=== PATIENT | male | born 1950 | race Caucasian/White ===

== ENCOUNTER 2020-04-25 00:37 | Inpatient (IN) | payer BC, MEDICARE ==
[2020-04-25] VITALS (15 sets, daily range): BP systolic 105–122; BP diastolic 64–108
[~2020-04-25] VITALS: Ht 182.9 cm; Wt 87.1 kg
[2020-04-25] MEDS ORDERED: DILTIAZEM HCL 5 MG/ML 5 ML VIAL IV STA ×2 (01:12→04:43)
[2020-04-25] MEDS ORDERED: DILTIAZEM HCL VIAL 5 ML ONE (01:16)
--- NOTE | 2020-04-25 02:16 | Diagnostic Imaging Report ---
EXAMINATION: CHEST SINGLE (PORTABLE) INDICATION: Short of breath COMPARISON: None FINDINGS: TUBES and LINES: None. LUNGS: Normal lung volumes. Mild prominence of interstitial lung markings. No consolidations. Prominent pulmonary vasculature. PLEURA: No pleural effusion or pneumothorax. HEART AND MEDIASTINUM: Cardiac size is mildly enlarged. BONES AND SOFT TISSUES: No acute osseous lesion. Soft tissues are unremarkable. UPPER ABDOMEN: No free air under the diaphragm. IMPRESSION: Mild cardiomegaly and pulmonary vascular congestion. Mild prominence of interstitial lung markings, can be due to interstitial edema or chronic lung disease. Signed by: Otto Rodriguez DO on 04/25/2020 2:13 AM
[2020-04-25 02:23] LABS: BASOPHILS % 0.3 % (0.0-1.0); EOSINOPHILS # (AUTO) 0.1 (0.0-0.4); EOSINOPHILS % 0.3 % (0.0-6.0); HEMATOCRIT 45.5 % (38.2-49.6); LYMPHOCYTES # (AUTO) 2.8 (1.0-3.2); LYMPHOCYTES % 19.5 % (18.0-39.1); MEAN CORPUSCULAR HEMOGLOBIN 32.3 pg (28-32); MEAN CORPUSCULAR VOLUME 97.8 fL (81-99); MONOCYTES # (AUTO) 0.8 (0.2-0.8); MONOCYTES % 5.4 % (4.4-11.3); NEUTROPHILS # (AUTO) 10.6 (2.1-6.9); NEUTROPHILS % 72.8 % (38.7-80.0); PLATELET COUNT 166 x10e3/uL (140-360); RED BLOOD COUNT 4.65 x10e6/uL (4.3-5.7); RED CELL DISTRIBUTION WIDTH 12.6 % (11.7-14.4)
[2020-04-25 02:29] LABS: ALBUMIN 3.6 g/dL (3.5-5.0); ALBUMIN/GLOBULIN RATIO 1.1 (0.8-2.0); ANION GAP 20.5 mmol/L (8-16); CREATININE, SERUM 1.24 mg/dL (0.72-1.25); POTASSIUM 4.5 mmol/L (3.5-5.1)
[2020-04-25 02:37] LABS: CREATINE KINASE MB 2.9 ng/mL (0-5.0)
[2020-04-25] MEDS ORDERED: DILTIAZEM HCL 5 MG/ML 5 ML VIAL IV PRN (03:00)
--- NOTE | 2020-04-25 03:11 | Emergency Department Note ---
History of Present Illnes History of Present Illness Chief Complaint: Respiratory History of Present Illness This is a 69 year old male arrives to the ED with complaints of palpi tations shortness of breath . Historian: Patient Arrival Mode: Car Severity: mild Onset quality: gradual Timing of current episode: constant Progression: unchanged Chronicity: new Past Medical/Family History Physician Review I have reviewed the patient's past medical and family history. Any updates have been documented here. Past Medical History Recent Fever: No Clinical Suspicion of Infectio: No New/Unexplained Change in Ment: No Past Medical History: Hypertension, A-Fib, Kidney Stones, Chronic Back Pain Other Medical History: PRE DIABETIC Past Surgical History: Cataract Removal Other Surgery: MASS REMOVE FROM BILATERAL CHEST Social History Smoking Cessation: Never Smoker Counseling Performed: No Alcohol Use: None Any Illegal Drug Use: No Physically hurt or threatened: No Other Any Pre-Existing Lines (PICC,: No Review of Systems Review of Systems Constitutional: Reports no symptoms EENTM: Reports no symptoms Cardiovascular: Reports as per HPI, Reports chest pain, Reports palpitations Respiratory: Reports as per HPI, Reports dyspnea Gastrointestinal: Reports no symptoms Genitourinary: Reports no symptoms Musculoskeletal: Reports no symptoms Integumentary: Reports no symptoms Neurological: Reports no symptoms Psychological: Reports no symptoms Endocrine: Reports no symptoms Hematological/Lymphatic: Reports no symptoms Physical Exam Related Data Allergies: Coded Allergies: Clarithromycin (Verified Allergy, Mild, GI UPSET, 11/06/09) Uncoded Allergies: WHEAT (Allergy, Severe, 09/13/10) Triage Vital Signs Vital Signs Date Time Temp Pulse Resp B/P (MAP) Pulse Ox O2 Delivery O2 Flow Rate FiO2 04/25/20 00:53 97.9 170 17 124/89 99 Room Air Vital signs reviewed: Yes Physical Exam CONSTITUTIONAL Constitutional: Present well-developed, Present well-nourished HENT HENT: Present normocephalic, Present atraumatic, Present oropharynx clear/moist, Present nose normal HENT L/R: Present left ext ear normal, Present right ext ear normal EYES Eyes: Reports PERRL, Reports conjunctivae normal NECK Neck: Present ROM normal PULMONARY Pulmonary: Present effort normal, Present breath sounds normal CARDIOVASCULAR Cardiovascular: Present regular rhythm, Present irregular rhythm, Present heart sounds normal, Present capillary refill normal, Present normal rate, Present tachycardia GASTROINTESTINAL Abdominal: Present soft, Present nontender, Present bowel sounds normal GENITOURINARY Genitourinary: Present exam deferred SKIN Skin: Present warm, Present dry MUSCULOSKELETAL Musculoskeletal: Present ROM normal NEUROLOGICAL Neurological: Present alert, Present oriented x 3, Present no gross motor or sensory deficits PSYCHOLOGICAL Psychological: Present mood/affect normal, Present judgement normal Results Laboratory Lab results reviewed: Yes Laboratory comments 69 M arrived to the ED after complaints of SOB, noted to be in A fib with RVR given cardizem with improvement in heart rate. Pt admitted for observation for serial troponin and cardiac monitoring. Imaging Imaging results reviewed: Yes Procedures 12 Lead ECG Interpretation ECG Interpretation : ECG: ECG 1 Rhythm: atrial fibrillation Rate: tachycardia QRS axis: left Clinical Impression: abnormal ECG Assessment & Plan Medical Decision Making MDM 69-year-old male arrives the ED with complaints of palpitations and shortness of breath. Patient found to be nature fibrillation with rapid ventricular response. Patient given Cardizem the ED with improvement noted. Pt admitted for monitoring to telemetry. Assessment & Plan Final Impression: (1) Atrial fibrillation Depart Disposition: ADMITTED Last Vital Signs Date Time Temp Pulse Resp B/P (MAP) Pulse Ox O2 Delivery O2 Flow Rate FiO2 04/25/20 01:39 107 19 114/88 98 Room Air 04/25/20 00:53 97.9 Medications in the ED Diltiazem HCl 5 ml @ [facility] ONCE .ROUTE ; Start 04/25/20 at 01:16; Stop 04/25/20 at 01:10; Status DC Diltiazem HCl 10 mg NOW STAT IV Last administered on 04/25/20at 01:12; Admin Dose 10 MG; Start 04/25/20 at 01:12; Stop 04/25/20 at 01:13 ROBERTA MCKINNEY DO Apr 25, 2020 03:11
--- OUTSIDE RECORDS SUMMARY | 2020-04-25 03:23 | XMS REPORT | Continuity of Care Document ---
Author Author [facility] Organization [facility] Address [address] [place]. [address] [place] [id number] Phone Unavailable Care Team Providers Care Agent Broker Name Role Phone Ted MCKINNEY Attjúnior Unavailable Problems This patient has no known problems. Allergies, Adverse Reactions, Alerts This patient has no known allergies or adverse reactions. Medications This patient has no known medications. Procedures This patient has no known procedures. Results Test Description Test Time Test Comments Results Result Comments Source CHEST SINGLE (PORTABLE) 2020-04-25 02:11:00 [place] [address] Patient Name: MALLIKA CANALES MR #: [id number] : 1950 Age/Sex: 69/M Req #: [id number] Adm Physician: Ordered by: ROBERTA MCKINNEY DO Report #: [id number] Location: ER Room/Bed: Procedure: [id number] DX/CHEST SINGLE (PORTABLE) Exam Date: 04/25/20 Exam Time: 0135 REPORT STATUS: Signed EXAMINATION: CHEST SINGLE (PORTABLE) INDICATION: Short of breath COMPARISON: None FINDINGS: TUBES and LINES: None. LUNGS: Normal lung volumes. Mild prominence of interstitial lung markings. No consolidations. Pr ominent pulmonary vasculature. PLEURA: No pleural effusion or pneumothorax. HEART AND MEDIASTINUM: Cardiac size is mildly enlarged. BONES AND SOFT TISSUES: No acute osseous lesion. Soft tissues are unremarkable. UPPER ABDOMEN: No free air under the diaphragm. IMPRESSION: Mild cardiomegaly and pulmonary vascular congestion. Mild prominence of interstitial lung markings, can be due to interstitial edema or chronic lung disease. Signed by: Otto Rodriguez DO on 04/25/2020 2:13 AM Dictated By: OTTO RODRIGUEZ DO 2 Transcribed By: CORY on 04/25/20212 COPY TO: ROBERTA MCKINNEY DO
--- NOTE | 2020-04-25 03:45 | NUR ---
Patient received and offered a bed, patient is currently stable, will continue to monitor.
[2020-04-25] MEDS ORDERED: SUCRALFATE1 G/10 ML PO (06:10)
[2020-04-25] MEDS ORDERED: ATORVASTATIN CA10 MG PO (06:10)
[2020-04-25] MEDS ORDERED: CLONAZEPAM1 MG PO (06:10)
[2020-04-25] MEDS ORDERED: METOPROLOL TA37.5 MG PO (06:10)
[2020-04-25] MEDS ORDERED: GLIMEPIRIDE1 MG PO (06:10)
[2020-04-25] MEDS ORDERED: LOSARTAN POTASS25 MG PO (06:10)
[2020-04-25] MEDS ORDERED: POTASSIUM99 M1 PO (06:10)
--- NOTE | 2020-04-25 07:25 | NUR ---
PATIENT IN BED WITH HEAD OF BED ELEVATED, NO DISTRESS NOTED. TELEMETRY B[address] BED IN LOWER POSITION, CALL LIGHT AT REACH.
--- NOTE | 2020-04-25 07:40 | NUR ---
patient endorsed to next shift for continuity of care.
[2020-04-25 07:56] LABS: FREE THYROXINE INDEX 2.8306 (1.4-3.8); THYROID STIMULATING HORMONE 1.719 uIU/mL (0.350-4.940)
[2020-04-25] MEDS ORDERED: AMIODARONE HCL 150MG 100 ML IV ONE ×2 (08:15→10:15)
[2020-04-25] MEDS ORDERED: AMIODARONE HCL 900 MG in DEXTROSE 5% 500ML 500 ML IV ONE ×2 (08:30→10:30)
[2020-04-25] MEDS ORDERED: AMIODARONE HCL 200 MG TAB PO SCH (09:00)
[2020-04-25] MEDS ORDERED: LOSARTAN POTASSIUM 25 MG TAB PO SCH (09:00)
[2020-04-25] MEDS ORDERED: FUROSEMIDE INJ 10 MG/ML 2 ML VIAL IV SCH ×3 (09:45→18:00)
[2020-04-25 09:46] LABS: CREATINE KINASE MB 2.8 ng/mL (0-5.0)
--- NOTE | 2020-04-25 09:46 | History and Physical ---
CHIEF COMPLAINT: The patient is a 69-year-old male, who came in with shortness of breath. HISTORY OF PRESENTING ILLNESS: This is Mr. Andres Cuellar with history of hypertension, hyperlipidemia, history of atrial fibrillation, and diabetes mellitus, was in his usual state of health until last night. The patient was lying down and suddenly felt acute shortness of breath, and this has been ongoing process for the last week. The patient has been having off and on symptoms of shortness of breath, where he used to sit down and felt better. Also, noticed that the patient went to the clinic and was given albuterol treatment for possible bronchitis. PAST MEDICAL HISTORY: As mentioned above, hyperlipidemia, history of anxiety, history of diabetes mellitus, history of hypertension, history of atrial fibrillation, and history of SIADH. MEDICATIONS: He takes at home, Xarelto 20 mg once a day, metoprolol 50 mg twice a day, Glimepiride 1 mg half a tablet once a day, Atorvastatin 40 mg once a day, amlodipine 5 mg once a day, losartan 50 mg once a day, and sodium 2 g daily. PAST SURGICAL HISTORY: History of hiatal hernia repair, history of right and left cataract surgery, history of right breast mass removal in 1997 and left breast mass in 1993. REVIEW OF SYSTEMS: Negative for chest pain. Positive for shortness of breath. No nausea. No vomiting. No diarrhea. No constipation. No rectal bleeding. No hematochezia. Negative for orthopnea and PND. No diplopia. No blurry vision. ALLERGIES: MEDIATION ALLERGIES, CLARITHROMYCIN. OTHER ALLERGIES INCLUDE WHEAT. FAMILY HISTORY: Noncontributory. PHYSICAL EXAMINATION: VITAL SIGNS: On arrival; 97.0, pulse was 170, was irregular, respirations of 17, blood pressure is 124/89, and pulse oximetry of 99%. HEENT: Normocephalic and atraumatic. Pupils are reactive. CVS: S1 and S2. Irregular. Right now, rate controlled about 90 beats per minute. ABDOMEN: Soft, nontender, and nondistended. EXTREMITIES: Positive for edema. LUNGS: Positive for crackles at lung bases. LABORATORY VALUES: White count is 14,000, left shift of 10.6. Chemistry show a sodium of 130, potassium of 4.5, BUN of 24, creatinine of 1.25, and EGFR of 58. ALT and AST 81 and 41 respectively. Serology; coronavirus is pending. MICROBIOLOGY: None done. EKG shows atrial fibrillation with tachycardia with rapid ventricular response. In the ER, the patient was at about 170 beats per minute. The patient was given Cardizem and the patient's heart rate did come down. ASSESSMENT AND PLAN: Mr. Andres Cuellar with: 1. Atrial fibrillation with rapid ventricular response. 2. Possible congestive heart failure. We will go ahead and put him on IV Lasix 20 mg twice a day. 3. Hypertension. 4. Hyperlipidemia. 5. Diabetes mellitus. Continue home medications. We will also check an echocardiogram. Troponins will be trended. Thyroid will be done and further recommendation per clinical course. Again, the patient also has chronic kidney disease, stage 3. Further recommendation per clinical course. We will continue to monitor the patient. Cardiology consult will be done. MD IMANI Smiley/MODL /[id number]
--- NOTE | 2020-04-25 10:26 | NUR ---
PATIENT NOTED WITH HR OF 150-170, NOTIFIED, HE IS AT BED SIDE AT THIS TIME. NEW ORDERS RECEIVED.
--- NOTE | 2020-04-25 10:31 | Consultation ---
DATE OF CONSULTATION: Cardiology consultation CHIEF COMPLAINT: The patient is a 69-year-old with shortness of breath. HISTORY OF PRESENT ILLNESS: The patient is a 69-year-old, who came to the emergency room with a shortness of breath and palpitations. The patient was noted to be in atrial fibrillation. The patient had no chest pain. No nausea. No vomiting. No abdominal pain. PAST MEDICAL HISTORY: Significant for, 1. Hyperlipidemia. 2. Diabetes mellitus. 3. Hypertension. 4. Paroxysmal atrial fibrillation. 5. Previous hernia repair. 6. Cataract surgery. MEDICATIONS: At home include metoprolol, Lipitor, amlodipine, and glimepiride. SOCIAL HISTORY: The patient does not drink and does not smoke. FAMILY HISTORY: There is no known family history of coronary artery disease. PHYSICAL EXAMINATION: GENERAL: The patient is a well-developed, well-nourished male, in no obvious distress. VITAL SIGNS: Temperature of 97.8, pulse was 130, blood pressure 120/80. HEAD, EARS, EYES, NOSE, AND THROAT: The patient was normocephalic and atraumatic. Extraocular muscles were intact. Sclerae were anicteric. Pupils were equal, round, and reactive to light. NECK: Supple. No jugular venous distention. No carotid bruits. CHEST: Demonstrated rales bilaterally. CARDIAC: Demonstrated an irregularly irregular rhythm with a short 2/6 systolic murmur. ABDOMEN: Demonstrated good bowel sounds. No tenderness and no masses. EXTREMITIES: 1 to 2+ edema. NEUROLOGIC: The patient was alert and oriented x3. Cranial nerves II through XII were intact. Motor strength was +5/+5 in all limbs. IMAGING DATA: The patient's EKG demonstrated atrial fibrillation with a rapid ventricular response. IMPRESSION: The patient is a 69-year-old with acute systolic heart failure and atrial fibrillation with a rapid ventricular response. The patient's echocardiogram demonstrated an ejection fraction of 20%. RECOMMENDATIONS: 1. The patient will be started on IV amiodarone. 2. Xarelto will be used for anticoagulation. 3. The patient will be diuresed with IV Lasix. 4. The patient will be started on carvedilol and losartan for his reduced left ventricular function. 5. The patient will require cardiac catheterization after being adequately diuresed. MD FREDIS Chino/MODL /[id number] cc: Roberto Fatima MD
[2020-04-25] MEDS ORDERED: DEXTROSE 50% SYRINGE 50 ML IV PRN (11:45)
--- NOTE | 2020-04-25 11:48 | NUR ---
PATIENT TRANSFERRED TO IMCU ROOM 188. REPORT GIVEN TO RECEIVING NURSE. ALL PERSONAL ITEMS TAKEN WITH PATIENT.
--- NOTE | 2020-04-25 12:20 | NUR ---
informed Dr. Holland that patients heart rate elevated 160-170's after amiodarone drip started, orders received for cardizem 20 mg IVP x1 and Cardizem drip 5 mls/hr in addition to amiodarone drip. will continue to monitor.
[2020-04-25] MEDS ORDERED: DILTIAZEM HCL 5 MG/ML 5 ML VIAL IV ONE (12:30)
--- NOTE | 2020-04-25 12:31 | Consultation ---
DATE OF CONSULTATION: 04/25/2020 Initial EP Consultation REASON FOR CONSULTATION: Atrial fibrillation with rapid ventricular rate. HISTORY OF PRESENT ILLNESS: Mr. Cuellar is a 69-year-old man with a history of hypertension, diabetes mellitus, and paroxysmal atrial fibrillation, presents to the hospital with shortness of breath for several days. The patient was noted to have atrial fibrillation with rapid ventricular rate. He was started on amiodarone and has been receiving diuresis. A transthoracic echocardiogram demonstrates left ventricular ejection fraction approximately 25%. This is a new diagnosis for the patient. EP was consulted for further evaluation. REVIEW OF SYSTEMS: He currently denies any fevers, chills, lightheadedness, dizziness, discharge from the eyes, nose or mouth, swollen lymph nodes in the neck or groin, chest pain, palpitations, shortness of breath, coughing, abdominal pain, nausea, vomiting, dysuria, hematuria, swelling in the joints, joint pain, numbness and weakness, skin rashes, ulcers, depression, anxiety, swelling in the legs or arms. PAST MEDICAL HISTORY: As noted above. PAST SURGICAL HISTORY: No cardiac surgeries. SOCIAL HISTORY: He does not smoke cigarettes, drink any alcohol, or use illicit drugs. FAMILY HISTORY: No significant family history of early cardiac or sudden arrhythmias. MEDICATIONS: Please see MAR. Of note, the patient is on amiodarone drip. He is taking carvedilol as well. ALLERGIES: . PHYSICAL EXAMINATION: VITAL SIGNS: Temperature is afebrile. Heart rate currently ranging from 160 to 180 beats per minute in atrial fibrillation. Respiratory rate 14 breaths per minute and blood pressure is slightly elevated. GENERAL: No acute distress. Alert, awake, and oriented x3. HEENT: Normocephalic and atraumatic. Pupils are equal and reactive to light. LYMPH: No supraclavicular or submandibular lymphadenopathy appreciated. CVS: S1 and S2. Regular rate and rhythm. RESPIRATORY: Coarse breath entry. No wheezing. GI: Abdomen is soft and nontender. : No bladder fullness. No CVA tenderness. MUSCULOSKELETAL: No effusions or erythema noted in the knees or elbows bilaterally. NEURO: Moves all extremities spontaneously. No focal deficits. EXTREMITIES: No edema in lower extremities or upper extremities bilaterally. SKIN: No bruising or rashes noted. PSYCH: Mood is normal. Answers questions appropriately. LABORATORY DATA: Noted. Transthoracic echocardiogram demonstrates left ventricular ejection fraction of approximately 25%. ASSESSMENT AND PLAN: Mr. Cuellar is a 69-year-old male with history of hypertension, diabetes mellitus, paroxysmal atrial fibrillation, and newly diagnosis systolic cardiomyopathy, presented to the hospital for acute shortness of breath. The patient is noted to have atrial fibrillation with rapid ventricular rate. Currently, he is being medically optimized with amiodarone as well as diuresis. In terms of the patient's cardiomyopathy, he will receive coronary workup to rule out any arterial disease as a cause of his systolic cardiomyopathy. If that is normal, it is likely the patient has tachycardia-induced cardiomyopathy from the atrial fibrillation with rapid ventricular rate. I have discussed the pathophysiology of atrial fibrillation with the patient as well as ways in which to management including medical management, electrocardioversion, or pulmonary vein isolation. The patient would have a moderate and I described the procedure in detail to him. Currently, the patient is on amiodarone and he is still in atrial fibrillation with rapid ventricular rate. We can consider p.r.n. metoprolol to hold if systolic blood pressure is less than 100. Another option if the patient is to become hemodynamically unstable, would be to perform a transesophageal echocardiogram to ensure no left atrial appendage thrombus and an electrical cardioversion. The patient is inclined to having an ablation, which could possibly be performed as an outpatient. However, if he is unstable as an inpatient and his rate is poorly controlled, we can also consider a transfer to another facility for higher level of care and the ablation procedure. Mr. Cuellar has an elevated CHADS-VASc score. He is appropriately on Xarelto, which would continue. I have instructed him to take it with food. I will discuss this plan with Dr. Holland and also await results of coronary angiogram that is planned with the patient adequately diuresed. EP will continue to follow. Thank you very much for allowing us to participate in Mr. Cuellar's care. Please feel free to call with questions. DO ARGELIA MIMS/KEVIN /[id number]
[2020-04-25] MEDS: SUCRALFATE 1 GM TAB PO SCH ×3 (12:32→20:34)
[2020-04-25] MEDS: DILTIAZEM HCL 125 ML IV PRN (13:05)
[2020-04-25] MEDS ORDERED: POTASSIUM CHLO20 ME1 PO (14:34)
[2020-04-25] MEDS ORDERED: AMLODIPINE BESYL5 MG PO (14:37)
[2020-04-25] MEDS ORDERED: METOPROLOL TART50 MG PO (14:39)
[2020-04-25] MEDS ORDERED: SODIUM BICARBO650 MG PO (14:40)
[2020-04-25] MEDS: SODIUM BICARBONATE 650 MG TAB PO SCH (16:40)
[2020-04-25] MEDS: CARVEDILOL 3.125 MG TAB PO SCH (16:40)
[2020-04-25] MEDS: INSULIN LISPRO 100 UNIT/1 ML 3ML VIAL SQ SCH ×2 (16:51→20:37)
[2020-04-25] MEDS ORDERED: RIVAROXABAN 20 MG TABLET PO SCH (17:00)
[2020-04-25 20:50] LABS: CREATINE KINASE MB 2.6 ng/mL (0-5.0)
[2020-04-25] MEDS ORDERED: CLONAZEPAM 1 MG TAB PO SCH (21:00)
[2020-04-25] MEDS ORDERED: ATORVASTATIN 10 MG TAB PO SCH (21:00)
[2020-04-25] MEDS ORDERED: POTASSIUM CHLORIDE 20 MEQ TAB CR PO STA (21:06)
[2020-04-25 21:10] LABS: ALANINE AMINOTRANSFERASE 66 IU/L (0-55); ALBUMIN 3.3 g/dL (3.5-5.0); ALBUMIN/GLOBULIN RATIO 1.1 (0.8-2.0); ALKALINE PHOSPHATASE 66 IU/L (40-150); ANION GAP 15.5 mmol/L (8-16); BLOOD UREA NITROGEN 20 mg/dL (7-26); BUN/CREATININE RATIO 24 (6-25); CALCIUM 8.9 mg/dL (8.4-10.2); CARBON DIOXIDE 21 mmol/L (22-29); CHLORIDE 98 mmol/L (98-107); CREATININE, SERUM 0.83 mg/dL (0.72-1.25); EST GLOMERULAR FILTRATION RATE > 60 ML/MIN (60-); GLUCOSE 166 mg/dL (74-118); POTASSIUM 3.5 mmol/L (3.5-5.1); SODIUM 131 mmol/L (136-145)
[2020-04-25] MEDS: FUROSEMIDE INJ 10 MG/ML 2 ML VIAL IV SCH (21:10)
[2020-04-26] VITALS: BP 112/94
[2020-04-26 04:00] VITALS: BP 117/94
--- NOTE | 2020-04-26 04:07 | NUR ---
PT HR 150-160S, WITH BP 152/132 THEN 156/133 WITH O2 SAT 95%. PT PLACED ON 2L/NC O2 AND CALLED DR Shaneka GASPAR TO NOTIFY OF PT CONDITION. ORDERED TO KEEP AMIODARONE DRIP AT 33 ML/HR AND INCREASE CARDIZEM DRIP TO 10MG/HR AND USE CARDIZEM PRN NECESSARY. WILL CONT TO MONITOR PT.
[2020-04-26] MEDS ORDERED: AMIODARONE HCL 900 MG in DEXTROSE 5% 500ML 500 ML IV SCH (04:15)
[2020-04-26 04:36] LABS: BASOPHILS # (AUTO) 0.1 (0.0-0.1); BASOPHILS % 0.4 % (0.0-1.0); EOSINOPHILS # (AUTO) 0.1 (0.0-0.4); EOSINOPHILS % 0.7 % (0.0-6.0); HEMATOCRIT 45.8 % (38.2-49.6); HEMOGLOBIN 15.5 g/dL (14.0-18.0); LYMPHOCYTES # (AUTO) 1.8 (1.0-3.2); LYMPHOCYTES % 15.2 % (18.0-39.1); MEAN CORPUSCULAR HEMOGLOBIN 31.3 pg (28-32); MEAN CORPUSCULAR HGB CONC 33.8 g/dL (31-35); MONOCYTES # (AUTO) 0.8 (0.2-0.8); MONOCYTES % 6.3 % (4.4-11.3); NEUTROPHILS # (AUTO) 9.1 (2.1-6.9); NEUTROPHILS % 76.4 % (38.7-80.0); PLATELET COUNT 162 x10e3/uL (140-360); RED BLOOD COUNT 4.96 x10e6/uL (4.3-5.7); RED CELL DISTRIBUTION WIDTH 12.2 % (11.7-14.4)
[2020-04-26 04:37] LABS: MEAN CORPUSCULAR VOLUME 92.3 fL (81-99)
[2020-04-26 04:58] LABS: ANION GAP 19.7 mmol/L (8-16); BLOOD UREA NITROGEN 17 mg/dL (7-26); BUN/CREATININE RATIO 22 (6-25); CALCIUM 9.4 mg/dL (8.4-10.2); CARBON DIOXIDE 22 mmol/L (22-29); CHLORIDE 96 mmol/L (98-107); CHOLESTEROL 97 MD/DL (0-199); CREATININE, SERUM 0.77 mg/dL (0.72-1.25); EST GLOMERULAR FILTRATION RATE > 60 ML/MIN (60-); GLUCOSE 147 mg/dL (74-118); HDL CHOLESTEROL 48 MG/DL (40-60); LDL CHOLESTEROL 33 MG/DL (60-130); POTASSIUM 3.7 mmol/L (3.5-5.1); SODIUM 134 mmol/L (136-145); TRIGLYCERIDES 80 MG/DL (0-149)
[2020-04-26] MEDS ORDERED: AMIODARONE 900MG 500 ML IV ONE (05:17)
[2020-04-26] MEDS ORDERED: DILTIAZEM HCL IV 5MG/ML 25 ML VIAL ONE (05:18)
[2020-04-26] MEDS ORDERED: SODIUM CHLORIDE 0.9% 100 ML ONE (05:18)
[2020-04-26] MEDS: DILTIAZEM HCL 125 ML IV PRN (05:23)
[2020-04-26] MEDS: SUCRALFATE 1 GM TAB PO SCH ×2 (07:30→11:30)
[2020-04-26] MEDS: INSULIN LISPRO 100 UNIT/1 ML 3ML VIAL SQ SCH ×2 (07:30→12:00)
[2020-04-26 07:41] VITALS: BP 121/92
[2020-04-26] MEDS: CLONAZEPAM 1 MG TAB PO SCH ×2 (08:00→12:00)
--- NOTE | 2020-04-26 08:01 | Progress Note ---
DATE: SUBJECTIVE: A 69-year-old gentleman who came in with shortness of breath, was found to be in acute congestive heart failure. EF is 15% to 20%. The patient is currently on Cardizem and amiodarone drip for rate control. The patient's heart rate has been running in the 120s to 140s, seen by Dr. Holland. No chest pain at this time. No shortness of breath. No orthopnea or PND. He has been given Lasix 40 mg twice a day. The patient is currently also on sodium tablets for SIADH and atorvastatin for hyperlipidemia. OBJECTIVE: VITAL SIGNS: Temperature is 98.4, pulse of 140s to 150s, respirations of 19, blood pressure is 117/97, on nasal cannula 2 L at 97%. HEENT: Normocephalic and atraumatic. Pupils are reactive. CVS: S1 and S2 normal, tachy. LUNGS: Positive for crackles at lung bases. ABDOMEN: Soft, nontender, nondistended. EXTREMITIES: Positive for trace edema still. LABORATORY VALUES: White count is 11,000, lymphocytes 15.2, neutrophil count 9.2. Serology: Coronavirus is pending. Chemistries: Sodium 134, potassium 3.7, BUN of 17, glucose of 167, LDL was 33. MEDICATIONS: Reviewed. ASSESSMENT: 1. Mr. Andres Cuellar with acute on chronic congestive heart failure, systolic. 2. Possible coronary artery disease. 3. Atrial fibrillation with rapid ventricular response. 4. Diabetes mellitus. 5. Hypertension. 6. SIADH. PLAN: Continue IV amiodarone. Continue IV Cardizem. We will need a cardiac catheterization. Continue with Xarelto for anticoagulation. Continue with cardiac monitoring. Further recommendation per clinical course. We will need cardiac catheterization and risk stratification at that point in time. Further recommendation per clinical course. MD IMANI Smiley/MODL /[id number]
[2020-04-26] MEDS ORDERED: BENZOCAINE 20% SPR 60 ML CAN ONE (08:43)
[2020-04-26] MEDS ORDERED: SODIUM CHLORIDE 0.9% 1000ML 1,000 ML ONE (08:43)
[2020-04-26] MEDS ORDERED: LOSARTAN POTASSIUM 25 MG TAB PO SCH (09:00)
[2020-04-26] MEDS ORDERED: POTASSIUM CHLORIDE 10MEQ EA PO SCH (09:00)
[2020-04-26] MEDS ORDERED: FENTANYL CITRATE/PF 100MCG/2 ML INJ ONE ×2 (09:09→09:18)
[2020-04-26] MEDS ORDERED: MIDAZOLAM HCL 2 MG/2 ML VIAL ONE ×2 (09:09→09:18)
[2020-04-26] MEDS ORDERED: DIAZEPAM 5 MG TAB PO PRN (10:00)
[2020-04-26] MEDS: FUROSEMIDE INJ 10 MG/ML 2 ML VIAL IV SCH (10:07)
[2020-04-26] MEDS: SODIUM BICARBONATE 650 MG TAB PO SCH (10:07)
[2020-04-26] MEDS: CARVEDILOL 3.125 MG TAB PO SCH (10:23)
--- NOTE | 2020-04-26 11:01 | NUR ---
REC'D ORDER FROM INTERNAL COMMUNICATIONS SPECIALIST THIS MORNING TO TRANSFER PT TO [facility] FOR ABLATION TRANSFERING PHYSICIAN DR FAITH GASPAR, ACCEPTING PHYSICIAN UMANG SANTIZO CM CALLED TRANSFER CENTER AND SPOKE WITH QUETA PH: [phone] FAX:[phone] FAXED CLINICAL INFORMATION, CONFIRMATION REC'D REQUESTED IMCU BED, ON AMIODORONE DRIP CHOICE LETTER SIGNED COVID FORM AND MOT IN PACKET AT DESK CM TO FAX COVID RESULTS WHEN THEY ARE AVAILABLE TO [phone] SPOKE WITH LAB WHO STATES TEST WENT TO [facility] AND RESULTS SHOULD BE AVAILABLE 24-48 HRS WILL FAX AT THAT TIME
[2020-04-26 11:32] VITALS: BP 116/83
[2020-04-26 11:47] VITALS: BP 120/84
--- NOTE | 2020-04-26 13:24 | NUR ---
REC'D MOT FROM TRANSFER CENTER AT [address] [address] CALL REPORT TO [phone] ROOM 457 ACCEPTING PHSYSICIAN UMANG SANTIZO [employer]OS [employer] REQUEST HOUSE SUP TO FAX COMPLETED MOT TO [phone] CM TO FAX COVID RESULTS WHEN AVAILABLE MOT AND COVID FORM IN PACKET AT DESK NURSE JUAN NOTIFIED OF ABOVE
--- NOTE | 2020-04-26 13:44 | Operative Report ---
DATE OF PROCEDURE: 04/26/2020 SURGEON: Alberto Holland MD PROCEDURE: 1. Transesophageal echocardiogram. 2. Cardioversion. PREOPERATIVE DIAGNOSIS: Atrial fibrillation. POSTOPERATIVE DIAGNOSIS: Atrial fibrillation. COMPLICATIONS: None. ANESTHESIA: Conscious sedation. TECHNIQUE: The patient was given a total of 6 mg of Versed and 100 mg of fentanyl. Transesophageal echocardiogram probe was passed without difficulty and there was no thrombus in the left atrial appendage. The patient was then cardioverted with 120 joules of synchronized voltage and converted briefly to normal sinus rhythm, but then returned to atrial fibrillation. There were no complications. CONCLUSION: Unsuccessful cardioversion with the patient remaining in atrial fibrillation. Alberto Holland MD DSH/MODL /[id number]
--- NOTE | 2020-04-26 15:40 | NUR ---
Patient discharged to [facility] via ambulance. Transferred with amiodarone drip, Cardizem drip, residential monitor and oxygen 2 liters nasal canula.
== END 2020-04-26 15:40 | disposition short-term general hospital (02) | DRG 308 ==
LOC: ER 00:51 → ERHOLD 02:49 → MED/SURG3 04:58 → IMCU 11:51 → OBSVTOIN 04-26 09:20
PROVIDERS: ADMIT Family Medicine; ATTEND Family Medicine
DX: I48.91 Unspecified atrial fibrillation (principal); I50.23 Acute on chronic systolic (congestive) heart failure; E22.2 Syndrome of inappropriate secretion of antidiuretic hormone; I48.19 Other persistent atrial fibrillation; I11.0 Hypertensive heart disease with heart failure; I25.10 Atherosclerotic heart disease of native coronary artery without angina pectoris; E11.9 Type 2 diabetes mellitus without complications; Z11.59 Encounter for screening for other viral diseases
CPT/HCPCS: 36415; 71045; 80048; 80053; 80061; 82550; 82553; 82948; 83880; 84436; 84443; 84479; 84484; 85025; 93005; 93306; 93307; 93312; 93325; 99284; G0378; J1940; J2250; J3010; J7030; J7050; J7060; U0002